=== PATIENT | male | born 1985 | race Caucasian/White ===

== ENCOUNTER → 2018-03-07 16:29 | Emergency (ER) | payer SELFPAY ==
[~2018-03-07 16:29] MED LIST: Morphine INJ* 4 MG/ML 1 ML SYRINGE (NEW SYRINGE VERSION) IV ONE; Morphine INJ* 4 MG/ML 1 ML SYRINGE (NEW SYRINGE VERSION) ONE; Morphine INJ** 4 MG/ML 1 ML CARPUJECT IV ONE; Morphine VIAL* 4 MG/ML VIAL (1 ml vial) IV ONE
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
--- NOTE | 2018-03-07 17:32 | RAD ---
Indication: Left humerus injury. 2 views of left humerus demonstrates a spiral fracture midshaft of the left humerus with dorsal and lateral displacement of the distal fracture fragment approximately 1 shafts width. IMPRESSION: Spiral fracture midshaft of the humerus with lateral and dorsal displacement approximately 1 shafts width.
--- NOTE | 2018-03-07 17:34 | RAD ---
Indication: Left shoulder injury. 2 views of left shoulder demonstrates spiral fracture midshaft humerus as described previously. There is old injury of the left clavicle. The scapula and humeral head are otherwise unremarkable. IMPRESSION: The shoulder is grossly unremarkable. Spiral fracture of the left humerus is again identified.
[2018-03-07 20:18] VITALS: BP 112/78
--- NOTE | 2018-03-08 07:31 | RAD ---
INDICATION: Traumatic fracture of the left humerus post splint application. COMPARISON: Comparison is made with a prior study of the same date. TECHNIQUE: 2 views of the left humerus were obtained. FINDINGS: The bones are visualized through a fiberglass splint. There is an oblique fracture through the mid diaphysis of the humerus. The distal fragment is displaced approximately one shaft diameter posterior. There is been interval reduction of the angulation seen on the prior study. IMPRESSION: OBLIQUE FRACTURE OF THE MID DIAPHYSIS OF THE HUMERUS STATUS POST SPLINT PRESENT. R1
== END | disposition home or self-care (01) ==
LOC: ED 16:29
DX: S42.302A Unspecified fracture of shaft of humerus, left arm, initial encounter for closed fracture (principal); Z72.0 Tobacco use; V47.6XXA Car passenger injured in collision with fixed or stationary object in traffic accident, initial encounter; Y92.89 Other specified places as the place of occurrence of the external cause
CPT/HCPCS: 29105; 96374; 96376; 99283; J2270